=== PATIENT | female | born 1985 | race African-American/Black ===

== ENCOUNTER 2018-02-21 11:00 | Emergency (ER) | payer SELFPAY ==
--- NOTE | 2018-02-21 12:53 | ER Document Report ---
ED Medical Screen (RME) - General Chief Complaint: Vaginal Bleeding Stated Complaint: NEED IUD CHECKED/REMOVED Time Seen by Provider: 02/21/18 12:46 Notes: RAPID MEDICAL EVALUATION DISCLOSURE I have seen this patient as part of a Rapid Medical Evaluation and, if applicable, placed any initially appropriate orders. The patient will be seen and fully evaluated, including a full history and physical exam, by a provider (in Main ED or Fast Track) when a room becomes available. 33-year-old female sent here from the urgent care facility for vaginal bleeding and fatigue ongoing for the past few weeks. Over the past few days she has had some vaginal blood clots. The urgent care facility sent her here to check her hemoglobin. She does not know if her IUD is in the correct position or if it has become displaced because she can no longer feel the IUD strings. She denies abdominal pain. EXAM CTAB RRR No abdominal TTP TRAVEL OUTSIDE OF THE [place] IN LAST 30 DAYS: No - Related Data Allergies/Adverse Reactions: No Known Allergies Allergy (Verified 02/21/18 11:12) Past Medical History - Social History Chew tobacco use (# tins/day): No Frequency of alcohol use: None Drug Abuse: None Renal/ Medical History: Denies: Hx Peritoneal Dialysis Physical Exam - Vital signs Vitals: Temp Pulse Resp BP Pulse Ox 98.0 F 74 15 111/59 L 98 02/21/18 11:15 02/21/18 11:15 02/21/18 11:15 02/21/18 11:15 02/21/18 11:15 Course - Vital Signs Vital signs: Temp Pulse Resp BP Pulse Ox 98.0 F 74 15 111/59 L 98 02/21/18 11:15 02/21/18 11:15 02/21/18 11:15 02/21/18 11:15 02/21/18 11:15 Doctor's Discharge - Discharge Referrals: DORIS TODD MD [Primary Care Provider] - Follow up as needed
[2018-02-21 13:54] LABS: ABSOLUTE EOSINOPHILS # (AUTO) 0.2 10^3/uL (0.0-0.6); ABSOLUTE LYMPHOCYTES (AUTO) 2.6 10^3/uL (0.5-4.7); ABSOLUTE MONOCYTES (AUTO) 0.6 10^3/uL (0.1-1.4); ABSOLUTE NEUT (AUTO) 5.4 10^3/uL (1.7-8.2); BASOPHILS % (AUTO) 0.2 % (0-2); EOSINOPHILS % (AUTO) 2.3 % (0-6); HEMATOCRIT 23.5 % (36.0-47.0); LYMPHOCYTES % (AUTO) 29.5 % (13-45); MEAN CORPUSCULAR HEMOGLOBIN 27.5 pg (27.0-33.4); MEAN CORPUSCULAR HGB CONC 33.2 g/dL (32.0-36.0); MEAN CORPUSCULAR VOLUME 83 fl (80-97); PLATELET COUNT 368 10^3/uL (150-450); RED BLOOD COUNT 2.84 10^6/uL (3.72-5.28); RED CELL DISTRIBUTION WIDTH 15.5 % (11.5-14.0); TOTAL CELLS COUNTED % (AUTO) 100 %; WHITE BLOOD COUNT 8.9 10^3/uL (4.0-10.5)
[2018-02-21 13:56] LABS: APPEARANCE,URINE SLIGHTLY-CLOUDY; BILIRUBIN,URINE NEGATIVE (NEGATIVE); COLOR,URINE YELLOW; GLUCOSE, URINE NEGATIVE (NEGATIVE); KETONES,URINE NEGATIVE (NEGATIVE); LEUKOCYTE ESTERASE,URINE MODERATE (NEGATIVE); NITRITE,URINE NEGATIVE (NEGATIVE); PROTEIN,URINE NEGATIVE (NEGATIVE); URIC ACID CRYSTALS,URINE FEW /HPF; URINE SPECIFIC GRAVITY 1.014; UROBILINOGEN,URINE NEGATIVE mg/dL (<2.0)
[2018-02-21 14:12] LABS: ANION GAP 8 (5-19); BLOOD UREA NITROGEN 6 mg/dL (7-20); CALCIUM 9.4 mg/dL (8.4-10.2); CARBON DIOXIDE 24 mmol/L (22-30); CHLORIDE 109 mmol/L (98-107); GLUCOSE 95 mg/dL (75-110); HEMOGLOBIN 7.8 g/dL (12.0-15.5); POTASSIUM 3.9 mmol/L (3.6-5.0); SODIUM 140.9 mmol/L (137-145)
--- NOTE | 2018-02-21 15:01 | RADIOLOGY REPORT (SQ) ---
EXAM DESCRIPTION: U/S NON OB PEL TV W/DOPPLER COMPLETED DATE/TIME: 02/21/2018 2:47 pm REASON FOR STUDY: vag bleeding; eval IUD position LMP 01/19/2018 COMPARISON: None. TECHNIQUE: Dynamic and static grayscale images acquired of the pelvis via transvaginal approach and recorded on PACS. Additional selected color Doppler and spectral images recorded. LIMITATIONS: None. FINDINGS: UTERUS: 4 fibroids are identified. The largest measures 5 cm in largest diameter and is p edunculated. ENDOMETRIAL STRIPE: IUD is not identified. CERVIX: 5.4 cm. There may be some clot within the endocervical canal. RIGHT OVARY AND DOPPLER: Normal size. No worrisome masses. Normal arterial vascular flow without evid ence for torsion. LEFT OVARY AND DOPPLER: Normal size. No worrisome masses. Normal arterial vascular flow without evide nce for torsion. FREE FLUID: None noted. OTHER: No other significant finding. MEASUREMENTS: UTERUS: 9.1 x 5.7 x 4.3 cm. ENDOMETRIAL STRIPE: 9 mm. RIGHT OVARY: 2.4 x 2.1 x 1.7 cm. LEFT OVARY: 1.9 x 1.8 x 1.6 cm. IMPRESSION: 1. Therefore identifiable uterine fibroids ; the largest of the 3 smaller fibroids carlos ures 2.6 cm in largest diameter. The largest fibroid appears to be pedunculated and measures 5 cm in largest diameter. 2. IUD is not identified within the endometrial canal. TECHNICAL DOCUMENTATION: JOB ID: [id number] [employer]- All Rights Reserved Rev Reading location - IP/workstation name: [email or web address]
[2018-02-21] MEDS ORDERED: DIPHENHYDRAMINE HCL 25 MG CAPSULE PO PRN (16:00)
[2018-02-21] MEDS ORDERED: NORMAL SALINE 250 ML IV PRN ×2 (16:00)
[2018-02-21] MEDS ORDERED: ACETAMINOPHEN 325 MG TABLET PO PRN (16:00)
--- NOTE | 2018-02-21 16:08 | ER Document Report ---
ED General - General Chief Complaint: Vaginal Bleeding Stated Complaint: NEED IUD CHECKED/REMOVED Time Seen by Provider: 02/21/18 12:46 Mode of Arrival: Ambulatory Information source: Patient, [facility] Records Notes: 33-year-old female with no reported past medical history presents with complaint of 1 month of vaginal bleeding. Patient states that she does have a history of heavy menstrual bleeding but it lasted this long. She states initially she was passing small clots but today she passed a large clot which soaked through her pants just prior to arrival. Patient has mild abdominal cramping. Patient has been twice and has 1 live child and has had one . Patient does describe some dizziness and nausea a few days ago. TRAVEL OUTSIDE OF THE [place] IN LAST 30 DAYS: No - HPI Onset: Other Onset/Duration: Gradual, Persistent, Worse Quality of pain: Cramping Severity: Mild Associated symptoms: Nausea, Other - Dizziness. denies: Shortness of breath Exacerbated by: Denies Relieved by: Denies Similar symptoms previously: No Recently seen / treated by doctor: No - Related Data Allergies/Adverse Reactions: No Known Allergies Allergy (Verified 02/21/18 11:12) Past Medical History - General Information source: Patient, [facility] Records - Social History Smoking Status: Never Smoker Chew tobacco use (# tins/day): No Frequency of alcohol use: None Drug Abuse: Marijuana Lives with: Family Family History: Reviewed & Not Pertinent Patient has suicidal ideation: No Patient has homicidal ideation: No - Medical History Medical History: Negative Renal/ Medical History: Denies: Hx Peritoneal Dialysis Review of Systems - Review of Systems Notes: REVIEW OF SYSTEMS: CONSTITUTIONAL : Denies fever, chills, or sweats. Denies recent illness. Denies weight loss, recent hospitalizations. EENT: Denies visual changes, eye pain. Denies sore throat, oral lesions, difficulty swallowing. CARDIOVASCULAR: Denies chest pain. Denies palpitations. Denies lower extremity edema. RESPIRATORY: Denies cough. Denies shortness of breath, wheezing. GASTROINTESTINAL: Denies abdominal pain or distention. Denies nausea, vomiting, or diarrhea. Denies blood in vomitus, stools, or per rectum. Denies black, tarry stools. Denies constipation. GENITOURINARY: Denies difficulty urinating, painful urination, frequency, blood in urine, or vaginal discharge. MUSCULOSKELETAL: Denies back or neck pain or stiffness. Denies joint pain or swelling. SKIN: Denies rash, lesions or sores. HEMATOLOGIC : Denies easy bruising or bleeding. LYMPHATIC: Denies swollen glands. NEUROLOGICAL: Denies confusion or altered mental status. Denies loss of consciousness. Denies headache. Denies weakness or paralysis. Denies problems difficulty with ambulation, slurred speech. Denies sensory loss, numbness, or tingling. Denies seizures. PSYCHIATRIC: Denies anxiety or stress. Denies depression, suicidal ideation, or homicidal ideation. Denies visual or auditory hallucinations. Physical Exam - Vital signs Vitals: Temp Pulse Resp BP Pulse Ox 98.0 F 74 15 111/59 L 98 02/21/18 11:15 02/21/18 11:15 02/21/18 11:15 02/21/18 11:15 02/21/18 11:15 - Notes Notes: PHYSICAL EXAMINATION: GENERAL: Well-appearing, well-nourished and in no acute distress. HEAD: Atraumatic, normocephalic. EYES: Pupils equal round and reactive to light, extraocular movements intact, conjunctiva are normal. ENT: Nares patent, oropharynx clear without exudates. Moist mucous membranes. NECK: Normal range of motion, supple without lymphadenopathy LUNGS: Breath sounds clear to auscultation bilaterally and equal. No wheezes rales or rhonchi. HEART: Regular rate and rhythm without murmurs ABDOMEN: Soft, nontender, nondistended abdomen. No guarding, no rebound. No masses appreciated. Female : Pelvic exam; External genitalia unremarkable. Speculum exam with bloody discharge. Vaginal wall unremarkable. Os closed. IUD not visualized no cervical motion tenderness. No adnexal tenderness or masses appreciated. Swabs obtained for gonorrhea, chlamydia and wet prep. Musculoskeletal: Normal range of motion, no pitting or edema. No cyanosis. NEUROLOGICAL: Cranial nerves grossly intact. Normal speech, normal gait. Normal sensory, motor exams PSYCH: Normal mood, normal affect. SKIN: Warm, Dry, normal turgor, no rashes or lesions noted. Course - Re-evaluation Re-evalutation: 02/21/18 16:06 Temp Pulse Resp BP Pulse Ox 98.0 F 74 15 111/59 L 98 02/21/18 11:15 02/21/18 11:15 02/21/18 11:15 02/21/18 11:15 02/21/18 11:15 Transvaginal US 02/21/18 12:51 IMPRESSION: 1. Therefore identifiable uterine fibroids ; the largest of the 3 smaller fibroids measures 2.6 cm in largest diameter. The largest fibroid appears to be pedunculated and measures 5 cm in largest diameter. 2. IUD is not identified within the endometrial canal. Laboratory 02/21/18 02/21/18 02/21/18 13:21 13:21 13:21 WBC 8.9 RBC 2.84 L Hgb 7.8 L Hct 23.5 L MCV 83 MCH 27.5 MCHC 33.2 RDW 15.5 H Plt Count 368 Seg Neutrophils % 61.0 Lymphocytes % 29.5 Monocytes % 7.0 Eosinophils % 2.3 Basophils % 0.2 Absolute Neutrophils 5.4 Absolute Lymphocytes 2.6 Absolute Monocytes 0.6 Absolute Eosinophils 0.2 Absolute Basophils 0.0 Sodium 140.9 Potassium 3.9 Chloride 109 H Carbon Dioxide 24 Anion Gap 8 BUN 6 L Creatinine 0.66 Est GFR ( Amer) > 60 Est GFR (Non-Af Amer) > 60 Glucose 95 Calcium 9.4 Urine Color YELLOW Urine Appearance SLIGHTLY-CLOUDY Urine pH 6.0 Ur Specific [place] 1.014 Urine Protein NEGATIVE Urine Glucose (UA) NEGATIVE Urine Ketones NEGATIVE Urine Blood LARGE H Urine Nitrite NEGATIVE Urine Bilirubin NEGATIVE Urine Urobilinogen NEGATIVE Ur Leukocyte Esterase MODERATE H Urine WBC (Auto) 29 Urine RBC (Auto) >182 Squamous Epi Cells Auto 1 Uric Acid Cryst (Auto) FEW Urine Mucus (Auto) OCC Urine Ascorbic Acid NEGATIVE Transvaginal US 02/21/18 12:51 IMPRESSION: 1. Therefore identifiable uterine fibroids ; the largest of the 3 smaller fibroids measures 2.6 cm in largest diameter. The largest fibroid appe ars to be pedunculated and measures 5 cm in largest diameter. 2. IUD is not identified within the endometrial canal. Temp Pulse Resp BP Pulse Ox 98.0 F 74 15 111/59 L 98 02/21/18 11:15 02/21/18 11:15 02/21/18 11:15 02/21/18 11:15 02/21/18 11:15 33-year-old female presents with complaint of 1 month of vaginal bleeding that worsened today where she began passing large clots. Patient reports associated nausea, dizziness last week. She states she came in today because she had a significant increase of bleeding and large clots. Vital signs stable upon arrival. Patient does not appear toxic or dehydrated. She is in no acute distress. Previous medical records and nursing notes reviewed. Vital signs within normal limits. Patient is afebrile, normotensive and not tachycardic or hypoxic. Transvaginal ultrasound was obtained and showed multiple uterine fibro ids. IUD not identified. Hemoglobin is 7.8. Pelvic exam significant for vaginal bleeding but I did not see the IUD during her pelvic exam. Patient agreeable to blood transfusion. Urinalysis consistent with urinary tract infection. 02/21/18 16:18 Nurse informed me that patient is upset and is stating that she has been here all day and nothing has been done. We had is a very friendly and normal interaction initially we were laughing and I explained everything to the patient. I walked back into the room and the patient was very hostile stating that I had an attitude. I explained to her that because she is going to continue to believe that I thought transfusing blood at a hemoglobin of 7.8 was appropriate. I also told her that she needs to follow-up with DIELECTRIC MACHINE OPERATOR regarding her fibroids. Patient states over and over I have to pay for this out of pocket and I want to make sure that it is necessary. I explained to the patient that she does not have to stay, does not have to have a blood transfusion. 02/21/18 18:12 Patient reevaluated. She is receiving her blood products. She was told that she has a urinary tract infection and bacterial vaginosis. Patient will be discharged home with Rigo Leyva. Recommendations to follow-up with DIELECTRIC MACHINE OPERATOR were given. 02/22/18 00:06 Patient requesting discharge prior to her second unit of PRBCs. - Vital Signs Vital signs: Temp Pulse Resp BP Pulse Ox 98.1 F 89 20 110/76 100 02/21/18 21:00 02/21/18 20:58 02/21/18 21:00 02/21/18 21:00 02/21/18 21:00 - Laboratory Result Diagrams: 02/21/18 13:21 02/21/18 13:21 Laboratory results interpreted by me: 02/21/18 02/21/1819 13:21 13:21 13:21 RBC 2.84 L Hgb 7.8 L Hct 23.5 L RDW 15.5 H Chloride 109 H BUN 6 L Urine Blood LARGE H Ur Leukocyte Esterase MODERATE H Crossmatch 02/21/18 16:27 RBC Hgb Hct RDW Chloride BUN Urine Blood Ur Leukocyte Esterase Crossmatch See Detail - Diagnostic Test Radiology reviewed: Image reviewed, Reports reviewed Discharge - Discharge Clinical Impression: Episode of heavy vaginal bleeding, Bacterial vaginosis Anemia Qualifiers: Anemia type: unspecified type Qualified Code(s): D64.9 - Anemia, unspecified Urinary tract infection Qualifiers: Urinary tract infection type: site unspecified Hematuria presence: with hematuria Qualified Code(s): N39.0 - Urinary tract infection, site not specified Condition: Good Disposition: HOME, SELF-CARE Instructions: Anemia ([facility]), Cephalexin ([facility]), Urinary Tract Infection ([facility]), Vaginal Bleeding ([facility]) Additional Instructions: You are being treated for bacterial vaginosis, an overgrowth of normal bacteria in the vagina. You are being sent home on an antibiotic called metronidazole. Take exactly as directed. Never drink alcohol while taking this antibiotic. Please return if you develop abdominal pain, fever greater than 101F, some vomiting, or any other symptoms that are concerning to you. Your ultrasound today showed multiple fibroids which can be the cause of your heavy vaginal bleeding. You will need to follow-up with DIELECTRIC MACHINE OPERATOR. You have been given a medication that should help stop the bleeding. Follow up with your [id number] hours for further care or return to the ED IMMEDIATELY if symptoms worsen or you have any concerns. If you cannot afford to follow up with your primary care physician a list of low cost clinics have been provided at the end of your discharge papers as well. Most prescribed medications have multiple side effects. The safest thing to do is when filling your prescription speak to your pharmacist regarding possible interactions with your normal home medications and over the counter medications such as Ibuprofen, Tylenol, Benadryl. If you experience any symptoms that cause you discomfort or concern you should discontinue the medication immediately and return to the emergency room or call your primary care physician. Prescriptions: Cephalexin Monohydrate [Keflex 500 mg Capsule] 500 mg PO BID 5 Days #10 capsule Metronidazole [Flagyl 500 mg Tablet] 500 mg PO BID #14 tablet Ondansetron [Zofran Odt 4 mg Tablet] 1 tab PO Q4H PRN #15 tab.rapdis PRN Reason: For Nausea/Vomiting Tranexamic Acid 1,300 mg PO TID #30 tablet Referrals: DORIS TODD MD [ACTIVE STAFF] - Follow up as needed YOGESH HINDS MD [ACTIVE STAFF] - Follow up in 1 week
[2018-02-21 17:18] LABS: BACTERIA (WET MOUNT) 3+ BACTERIA SEEN; RBCS (WET MOUNT) 4+ RBCS SEEN; T.VAGINALIS (WET MOUNT) NO TRICHOMONAS SEEN; WBCS (WET MOUNT) 2+ WBCS SEEN; YEAST (WET MOUNT) NO YEAST SEEN
[2018-02-21] MEDS ORDERED: CEPHALEXIN 500 MG CAPSULE PO ONE (17:26)
[2018-02-21] MEDS ORDERED: METRONIDAZOLE 500 MG TABLET PO ONE (17:26)
[2018-02-21] MEDS ORDERED: ONDANSETRON 4 MG TAB.RAPDIS PO ONE (17:26)
[2018-02-21 18:37] LABS: CHLAM PCR NOT DETECTED (NOT DETECT); GON PCR NOT DETECTED (NOT DETECT)
[2018-02-21 21:20] VITALS: BP 110/76
== END 2018-02-21 21:20 | disposition home or self-care (01) ==
LOC: ER 11:00
DX: N93.8 Other specified abnormal uterine and vaginal bleeding (principal); N76.0 Acute vaginitis; B96.89 Other specified bacterial agents as the cause of diseases classified elsewhere; N39.0 Urinary tract infection, site not specified; D64.9 Anemia, unspecified; Z97.5 Presence of (intrauterine) contraceptive device
CPT/HCPCS: 99284; 86900; 86901; 36415; 87210; 36430; 86850; 85025; 81025; 80048; 81001; 86920; 87491; 87591; 76830; 93976; P9016; S0119

== ENCOUNTER 2018-04-26 09:04 | Outpatient (CLI) | payer SELFPAY ==
[2018-04-26] MEDS ORDERED: NORMAL SALINE 250 ML IV PRN (09:30)
[2018-04-26] MEDS ORDERED: FERRIC CARBOXYMALTOSE 750 MG in NORMAL SALINE 250 ML IV PRN (09:30)
[2018-04-26 09:49] VITALS: BP 107/61
== END 2018-04-26 10:36 | disposition home or self-care (01) ==
LOC: II 09:04 → 5TH 09:55 → II 10:36
PROVIDERS: ATTEND Internal Medicine
PROC: 3E033GC Introduction of Other Therapeutic Substance into Peripheral Vein, Percutaneous Approach (ICD-10-PCS; principal; 2018-04-26)
DX: D50.0 Iron deficiency anemia secondary to blood loss (chronic) (principal); K90.9 Intestinal malabsorption, unspecified
CPT/HCPCS: 96365; J1439; J7050

== ENCOUNTER 2018-05-03 09:14 | Outpatient (CLI) | payer SELFPAY ==
[~2018-05-03 09:14] MED LIST: FERRIC CARBOXYMALTOSE 750 MG in NORMAL SALINE 250 ML IV PRN; NORMAL SALINE 250 ML IV PRN
[2018-05-03 09:41] VITALS: BP 105/63
== END 2018-05-03 10:30 | disposition home or self-care (01) ==
LOC: II 09:14 → 5TH 09:20 → II 10:30
PROVIDERS: ATTEND Internal Medicine
PROC: 3E033GC Introduction of Other Therapeutic Substance into Peripheral Vein, Percutaneous Approach (ICD-10-PCS; principal; 2018-05-03)
DX: D50.0 Iron deficiency anemia secondary to blood loss (chronic) (principal); K90.9 Intestinal malabsorption, unspecified
CPT/HCPCS: 96365; J7050; J1439

== ENCOUNTER 2018-06-11 13:54 | Observation (INO) | payer SELFPAY ==
[2018-06-11] MEDS ORDERED: NORMAL SALINE 1000 ML 1,000 ML IV ONE (14:13)
--- NOTE | 2018-06-11 14:14 | ER Document Report ---
ED Medical Screen (RME) - General Chief Complaint: Shortness Of Breath Stated Complaint: NAUSEA,SHORT OF BREATH Time Seen by Provider: 06/11/18 14:06 Mode of Arrival: Ambulatory Information source: Patient Notes: Patient presents complaining of vaginal bleeding with clots. Patient states that she is anemic has nausea feels faint and has shortness of breath. Patient states that she has history of fibroid uterus but does not have insurance and has not been able to follow-up. Patient states she has required a blood transfusion as well as an iron transfusion in the past. Patient denies any chest pain. I have greeted and performed a rapid initial assessment of this patient. A comprehensive ED assessment and evaluation of the patient, analysis of test results and completion of the medical decision making process will be conducted by additional ED providers. TRAVEL OUTSIDE OF THE [place] IN LAST 30 DAYS: No - Related Data Allergies/Adverse Reactions: No Known Allergies Allergy (Verified 06/11/18 13:55) Past Medical History Renal/ Medical History: Denies: Hx Peritoneal Dialysis Physical Exam - Vital signs Vitals: Temp Pulse Resp BP Pulse Ox 98.2 F 118 H 18 135/76 H 100 06/11/18 13:59 06/11/18 13:59 06/11/18 13:59 06/11/18 13:59 06/11/18 13:59 - Cardiovascular Rhythm: Tachycardia Heart sounds: S1 appreciated, S2 appreciated Course - Vital Signs Vital signs: Temp Pulse Resp BP Pulse Ox 98.2 F 118 H 18 135/76 H 100 06/11/18 13:59 06/11/18 13:59 06/11/18 13:59 06/11/18 13:59 06/11/18 13:59
[2018-06-11 15:08] LABS: ABSOLUTE EOSINOPHILS # (AUTO) 0.1 10^3/uL (0.0-0.6); ABSOLUTE LYMPHOCYTES (AUTO) 1.8 10^3/uL (0.5-4.7); ABSOLUTE MONOCYTES (AUTO) 0.5 10^3/uL (0.1-1.4); ABSOLUTE NEUT (AUTO) 6.8 10^3/uL (1.7-8.2); BASOPHILS % (AUTO) 0.2 % (0-2); LYMPHOCYTES % (AUTO) 19.4 % (13-45); MEAN CORPUSCULAR HEMOGLOBIN 25.2 pg (27.0-33.4); MEAN CORPUSCULAR HGB CONC 32.6 g/dL (32.0-36.0); MEAN CORPUSCULAR VOLUME 77 fl (80-97); MONOCYTES % (AUTO) 5.7 % (3-13); PLATELET COUNT 443 10^3/uL (150-450); RED BLOOD COUNT 2.07 10^6/uL (3.72-5.28); RED CELL DISTRIBUTION WIDTH 24.8 % (11.5-14.0); SEGMENTED NEUTROPHILS % (AUTO) 73.7 % (42-78); TOTAL CELLS COUNTED % (AUTO) 100 %; WHITE BLOOD COUNT 9.2 10^3/uL (4.0-10.5)
--- NOTE | 2018-06-11 15:09 | RADIOLOGY REPORT (SQ) ---
EXAM DESCRIPTION: CHEST 2 VIEWS COMPLETED DATE/TIME: 06/11/2018 2:57 pm REASON FOR STUDY: sob COMPARISON: None. EXAM PARAMETERS: NUMBER OF VIEWS: two views TECHNIQUE: Digital Frontal and Lateral radiographic views of the chest acquired. RADIATION DOSE: NA LIMITATIONS: none FINDINGS: LUNGS AND PLEURA: No opacities, masses or pneumothorax. No pleural effusion. MEDIASTINUM AND HILAR STRUCTURES: No masses or contour abnormalities. HEART AND VASCULAR STRUCTURES: Heart normal size. No evidence for failure. BONES: No acute findings. HARDWARE: None in the chest. OTHER: No other significant finding. IMPRESSION: No acute abnormality of the lungs. TECHNICAL DOCUMENTATION: JOB ID: [id number] [email or web address]- All Rights Reserved Reading location - IP/workstation name: [email or web address]
[2018-06-11 15:19] LABS: HEMOGLOBIN 5.2 g/dL (12.0-15.5)
[2018-06-11 15:22] LABS: ALANINE AMINOTRANSFERASE 28 U/L (9-52); ALBUMIN 3.7 g/dL (3.5-5.0); ALKALINE PHOSPHATASE 43 U/L (38-126); ANION GAP 7 (5-19); ASPARTATE AMINO TRANSFERASE 19 U/L (14-36); BILIRUBIN,DIRECT 0.2 mg/dL (0.0-0.4); BILIRUBIN,TOTAL 0.2 mg/dL (0.2-1.3); BLOOD UREA NITROGEN 5 mg/dL (7-20); CALCIUM 9.4 mg/dL (8.4-10.2); CARBON DIOXIDE 25 mmol/L (22-30); CHLORIDE 105 mmol/L (98-107); GLUCOSE 105 mg/dL (75-110); POTASSIUM 3.9 mmol/L (3.6-5.0); SODIUM 137.3 mmol/L (137-145); TOTAL PROTEIN 6.5 g/dL (6.3-8.2)
[2018-06-11 15:39] LABS: ANISOCYTOSIS 3+; HYPOCHROMASIA 1+; OVALOCYTES 1+; POIKILOCYTOSIS 1+
[2018-06-11 15:40] LABS: PLATELET COMMENT ADEQUATE; TEAR DROP CELLS SLIGHT
[2018-06-11] MEDS ORDERED: NORMAL SALINE 250 ML IV PRN ×2 (16:23→17:48)
--- NOTE | 2018-06-11 17:02 | EKG REPORT ---
SEVERITY:- NORMAL ECG - SINUS RHYTHM : Confirmed by: Jin Joseph MD 11-Jun-2018 17:02:19
--- NOTE | 2018-06-11 17:42 | ER Document Report ---
ED General - General Chief Complaint: Shortness Of Breath Stated Complaint: NAUSEA,SHORT OF BREATH Time Seen by Provider: 06/11/18 14:06 Mode of Arrival: Ambulatory Notes: 33-year-old female patient emergency department chief complaint of anemia, dizziness and significant vaginal bleeding. Patient has a known history of uterine fibroids. Has not been able to be seen so she says. Having some intermittent cramping. No other major issues at this time. States that every time she goes to stand up she gets really dizzy and feels like she is going to pass out. Had some episodes of vomiting today. TRAVEL OUTSIDE OF THE [place] IN LAST 30 DAYS: No - HPI Onset: Last week Onset/Duration: Gradual, Constant, Worse Severity: Moderate - Related Data Allergies/Adverse Reactions: No Known Allergies Allergy (Verified 06/11/18 13:55) Past Medical History - General Information source: Patient - Social History Smoking Status: Never Smoker Chew tobacco use (# tins/day): No Frequency of alcohol use: Rare Drug Abuse: Marijuana Lives with: Family Family History: Reviewed & Not Pertinent Patient has suicidal ideation: No Patient has homicidal ideation: No Renal/ Medical History: Denies: Hx Peritoneal Dialysis Review of Systems - Review of Systems Notes: Constitutional: denies: Chills, Diaphoresis, Fever, Malaise, +Weakness EENT: denies: Eye discharge, Blurred vision, Tearing, Double vision, Nose congestion, Nose discharge, Throat swelling, Mouth pain Cardiovascular: denies: Palpitations, Heart racing, Orthopnea, Dyspnea, Chest pain Respiratory: denies: Cough, Hurts to breathe, Wheezing, Shortness of breath Gastrointestinal: denies: Abdominal pain, Diarrhea, Black stools, bright red blood in stool. +Nausea, Vomiting, Genitourinary: denies: Burning, Dysuria, Discharge, Frequency, Flank pain, Hematuria.+ Positive vaginal bleeding Musculoskeletal: denies: Joint pain, Joint swelling, Muscle pain, Muscle stiffness, back pain Hematologic/Lymphatic: denies: Anemia, Easy bleeding, Easy bruising, Blood clots Neurological/Psychological: denies: Confusion, Dementia, Depression, Loss of consciousness Skin: No lesions, no masses, no skin breakdown, no abscesses Physical Exam - Vital signs Vitals: Temp Pulse Resp BP Pulse Ox 98.2 F 118 H 18 135/76 H 100 06/11/18 13:59 06/11/18 13:59 06/11/18 13:59 06/11/18 13:59 06/11/18 13:59 Interpretation: Normal - General General appearance: Appears well, Alert - HEENT Head: Normocephalic, Atraumatic Eyes: Normal Pupils: PERRL - Respiratory Respiratory status: No respiratory distress Chest status: Nontender Breath sounds: Normal Chest palpation: Normal - Cardiovascular Rhythm: Regular Heart sounds: Normal auscultation Murmur: No - Abdominal Inspection: Normal Distension: No distension Bowel sounds: Normal Tenderness: Nontender Organomegaly: No organomegaly - Back Back: Normal, Nontender - Extremities General upper extremity: Normal inspection, Nontender, Normal color, Normal ROM, Normal temperature General lower extremity: Normal inspection, Nontender, Normal color, Normal ROM, Normal temperature, Normal weight bearing. No: Kristopher's sign - Neurological Neuro grossly intact: Yes Cognition: Normal Orientation: AAOx4 [place] Coma Scale Eye Opening: Spontaneous Pallavi Coma Scale Verbal: Oriented Pallavi Coma Scale Motor: Obeys Commands [place] Coma Scale Total: 15 Speech: Normal Motor strength normal: LUE, RUE, LLE, RLE Sensory: Normal - Psychological Associated symptoms: Normal affect, Normal mood - Skin Skin Temperature: Warm Skin Moisture: Dry Skin Color: Pale Course - Re-evaluation Re-evalutation: 06/11/18 18:28 Patient has significant anemia. Requires blood transfusion at this time. History of uterine fibroids and supposedly has not been seen by PAINTER FOREMAN other than in the ER. At this time I think patient needs to be admitted. I have consulted with PAINTER FOREMAN, Dr. Manjarrez, she has agreed to admit at this time. - Vital Signs Vital signs: Temp Pulse Resp BP Pulse Ox 98.6 F 94 12 98/63 L 100 06/11/18 17:35 06/11/18 17:40 06/11/18 17:40 06/11/18 17:35 06/11/18 17:40 - Laboratory Result Diagrams: 06/11/18 14:37 06/11/18 14:37 Laboratory results interpreted by me: 06/11/18 06/11/18 06/11/18 14:37 14:37 14:44 RBC 2.07 L Hgb 5.2 L Hct 16.0 L MCV 77 L MCH 25.2 L RDW 24.8 H BUN 5 L Crossmatch See Detail Critical Care Note - Critical Care Note Total time excluding time spent on procedures (mins): 45 Comments: Symptomatic anemia, blood loss, consultation with specialist Discharge - Discharge Clinical Impression: Symptomatic anemia Uterine fibroid Qualifiers: Uterine leiomyoma location: unspecified location Qualified Code(s): D25.9 - Leiomyoma of uterus, unspecified Disposition: ADMITTED OBSERVATION Admitting Provider: [facility] - DR. Manjarrez Unit Admitted: Medical Floor
[2018-06-11] MEDS ORDERED: TRANEXAMIC ACID INJ/PF 1,000 MG/10 ML SDV IV ONE (17:46)
[2018-06-11] MEDS ORDERED: ESTROGENS,CONJUGATED 25 MG VIAL IV ONE (17:47)
[2018-06-11] MEDS ORDERED: ONDANSETRON HCL INJ/PF 4 MG/2 ML SDV IV ONE (18:30)
[2018-06-11] MEDS ORDERED: ONDANSETRON HCL INJ/PF 4 MG/2 ML SDV ONE (18:31)
[2018-06-11] MEDS ORDERED: ESTROGENS,CONJUGATED 25 MG VIAL ONE (18:45)
--- NOTE | 2018-06-11 21:16 | RADIOLOGY REPORT (SQ) ---
EXAM DESCRIPTION: US TRANSVAGINAL COMPLETED DATE/TME: 06/11/2018 17:44 CLINICAL HISTORY: 33 years, Female, vaginal bleeding COMPARISON: None. TECHNIQUE: Sonographic evaluation of the pelvis was performed. LIMITATIONS: None. FINDINGS: Uterus measures 8.7 x 3.9 x 5.5 cm in size. It contains multiple fibroids, the largest of which measures 4.8 x 4.0 x 4.9 cm in size located about the rightward aspect of the uterine fundus. Endometrial stripe thickness measures 3 mm. In addition, a fibroid is located about the lower uterine segment near the cervix measuring 4.1 x 3.2 x 3.2 cm in size. Right ovary measures 3.3 x 1.9 x 1.4 cm in size. It demonstrates normal echogenicity and low resistance arterial waveforms as well as venous flow. Left ovary measures 2.5 x 1.6 x 2.5 cm in size and demonstrates normal echogenicity and normal low resistance arterial waveforms/venous flow. IMPRESSION: No acute sonographic abnormality. Fibroid uterus. copyright 2010 [email or web address]- All Rights Reserved
[2018-06-11] MEDS ORDERED: ONDANSETRON HCL INJ/PF 4 MG/2 ML SDV IV PRN (23:10)
[2018-06-12] MEDS ORDERED: DEXTROSE 40% GEL 15 GM TUBE PO PRN ×2 (03:49)
[2018-06-12] MEDS ORDERED: DEXTROSE 50%-WATER 25 GM/50 ML DISP.SYRIN IV PRN ×2 (03:49)
[2018-06-12] MEDS ORDERED: GLUCAGON,HUMAN RECOMB 1 MG INJ SUBCUT PRN (03:49)
[2018-06-12] MEDS: RINGERS SOLUTION,LACTATED 1,000 ML IV PRN ×2 (03:50→22:59)
[2018-06-12 06:03] LABS: CHLAM PCR NOT DETECTED (NOT DETECT); GON PCR NOT DETECTED (NOT DETECT)
--- NOTE | 2018-06-12 07:50 | PDOC H&P ---
History of Present Illness Admission Date/PCP: 06/11/18 18:01-23hr observation Patient complains of: Nausea and vomting. Heavy vaginal bleeding History of Present Illness: LUZ MARIA PARRISH is a 33yo P1 presented to the ED with complaints of nausea and vomiting. Patient also with complaints of light headedness and dizziness and feeling as if she is going to pass out. Patient with significant history of abnormal uterine bleeding second to uterine myomas. On laboratory evaluation patient was found to have a hemoglobin of 5. On further questioning, patient admits to SOB and chest pain with activity. Patient states she has been bleeding since January. Patient notes that she has 4-5 days a month when she is not bleeding. Patient states for the last 3 days she has been flooding a pad every hour. Patient received blood in February when patient was symptomatic. Patient was seen by Dr. Galarza in April and was supposed to have a myomectomy but did not follow up. 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 Past Medical History LMP: current Menses: heavy and long Last Pap Smear: 09/24/17 - states was told abnormal but does not know when to follow up Gynecological Infection: Yes - history of chlamydia and gonorrhea 2005 Gynecological History Note: History of mirena and paragard; appears IUD was expulsed Past Surgical History Past Surgical History: Reports: Other - D&C for VIP Social History Lives with: Family Smoking Status: Former Smoker Last Time Smoked: 4 yearsv ago Frequency of Alcohol Use: None Hx Recreational Drug Use: Yes Drugs: Marijuana Hx Prescription Drug Abuse: No - Advance Directive Resuscitation Status: Full Code Family History Family History: Reviewed & Not Pertinent Parental Family History Reviewed: No - not contributory Children Family History Reviewed: NA Sibling(s) Family History Reviewed.: NA Medication/Allergy Home Medications: Cephalexin Monohydrate [Keflex 500 mg Capsule] 500 mg PO BID 5 Days #10 capsule 02/21/18 Metronidazole [Flagyl 500 mg Tablet] 500 mg PO BID #14 tablet 02/21/18 Ondansetron [Zofran Odt 4 mg Tablet] 1 tab PO Q4H PRN #15 tab.rapdis 02/21/18 Tranexamic Acid 1,300 mg PO TID #30 tablet 02/21/18 Allergies/Adverse Reactions: No Known Allergies Allergy (Verified 06/11/18 13:55) Review of Systems Constitutional: PRESENT: fatigue, headache(s), weakness Cardiovascular: PRESENT: chest pain, dyspnea on exertion, palpitations Respiratory: PRESENT: as per HPI Gastrointestinal: PRESENT: nausea Genitourinary: PRESENT: as per HPI Neurological: PRESENT: convulsions, syncope, weakness Physical Exam - Physical Exam Vital Signs: Temp Pulse Resp BP Pulse Ox 98.2 F 84 18 102/56 L 99 06/12/18 02:39 06/12/18 02:39 06/12/18 02:39 06/12/18 02:39 06/12/18 02:39 Intake & Output 06/10/18 06/11/18 06/12/18 06:59 06:59 06:59 Intake Total 2150 Balance 2150 Weight 62.5 kg General appearance: PRESENT: no acute distress, cooperative, thin, well- developed Head exam: PRESENT: atraumatic, normocephalic Respiratory exam: PRESENT: clear to auscultation helena, symmetrical Cardiovascular exam: PRESENT: RRR, +S1, +S2 Pulses: PRESENT: normal carotid pulses, normal dorsalis pedis pul Vascular exam: PRESENT: normal capillary refill - since transfusion of 3 units of blood GI/Abdominal exam: PRESENT: normal bowel sounds, soft Rectal exam: PRESENT: deferred Gentrourinary exam: PRESENT: other - vaginal bleeding Musculoskeletal exam: PRESENT: ambulatory, full ROM Neurological exam: PRESENT: alert, awake, oriented to person, oriented to place, normal gait Psychiatric exam: PRESENT: appropriate affect, normal mood, other - joking with with staff, upbeat Skin exam: PRESENT: intact - Gynecological Exam Labia: normal Urethra: normal Introitus: normal Perineum: normal Vagina: normal Cervix: masses - 5cm slightly irregular prolapsed fibroid Cervix: masses - 5cm irregular myoma, stalk palpated up in cervix to be about 1cm diameter stalk Uterus: masses Adhexa: normal - feels as if mass to the left of the uterine fundus Result Laboratory Results: 06/11/18 14:37 06/11/18 14:37 06/11/18 06/11/18 06/11/18 14:37 14:37 14:37 WBC 9.2 RBC 2.07 L Hgb 5.2 L Hct 16.0 L MCV 77 L MCH 25.2 L MCHC 32.6 RDW 24.8 H Plt Count 443 Seg Neutrophils % 73.7 Lymphocytes % 19.4 Monocytes % 5.7 Eosinophils % 1.0 Basophils % 0.2 Absolute Neutrophils 6.8 Absolute Lymphocytes 1.8 Absolute Monocytes 0.5 Absolute Eosinophils 0.1 Absolute Basophils 0.0 Sodium 137.3 Potassium 3.9 Chloride 105 Carbon Dioxide 25 Anion Gap 7 BUN 5 L Creatinine 0.75 Est GFR ( Amer) > 60 Est GFR (Non-Af Amer) > 60 Glucose 105 Calcium 9.4 Total Bilirubin 0.2 AST 19 ALT 28 Alkaline Phosphatase 43 Total Protein 6.5 Albumin 3.7 Serum HCG, Qual NEGATIVE Blood Type Antibody Screen 06/11/18 14:44 WBC RBC Hgb Hct MCV MCH MCHC RDW Plt Count Seg Neutrophils % Lymphocytes % Monocytes % Eosinophils % Basophils % Absolute Neutrophils Absolute Lymphocytes Absolute Monocytes Absolute Eosinophils Absolute Basophils Sodium Potassium Chloride Carbon Dioxide Anion Gap BUN Creatinine Est GFR ( Amer) Est GFR (Non-Af Amer) Glucose Calcium Total Bilirubin AST ALT Alkaline Phosphatase Total Protein Albumin Serum HCG, Qual Blood Type O POSITIVE Antibody Screen NEGATIVE 06/11/18 14:37 Troponin I < 0.012 Impressions: Chest X-Ray 06/11/18 14:11 IMPRESSION: No acute abnormality of the lungs. Transvaginal US 06/11/18 17:44 IMPRESSION: No acute sonographic abnormality. Fibroid uterus. copyright 2010 [employer]- All Rights Reserved Assessment & Plan - Diagnosis (1) Pedunculated leiomyoma of uterus Is this a current diagnosis for this admission?: Yes (2) Symptomatic anemia Is this a current diagnosis for this admission?: Yes (3) Uterine fibroid Qualifiers: Uterine leiomyoma location: intramural and submucous Qualified Code(s): D25.1 - Intramural leiomyoma of uterus; D25.0 - Submucous leiomyoma of uterus Is this a current diagnosis for this admission?: Yes - Plan Summary Plan Summary: Patient post 3 units of blood Discussed with patient that she has a very treatable prolapsed fibroid of the uterus that can be removed with minor procedure under MAC as patient is not interested in removal of uterus Will discuss with Dr. Marcial Pt is NPO for now
--- NOTE | 2018-06-12 08:53 | PDOC PROGRESS REPORT ---
Subjective Progress Note for:: 06/12/18 Subjective:: Doing well today. Bleeding is stopped. Reason For Visit: SYMPTOMATIC ANEMIA,UTERINE FIBROID Physical Exam - Physical Exam Vital Signs: Temp Pulse Resp BP Pulse Ox 98.6 F 97 18 107/65 100 06/12/18 08:00 06/12/18 08:00 06/12/18 08:00 06/12/18 08:00 06/12/18 08:00 Intake & Output 06/11/18 06/12/18 06/13/18 06:59 06:59 06:59 Intake Total 2150 Balance 2150 Weight 64.2 kg General appearance: PRESENT: no acute distress, well-developed, well-nourished - Gynecological Exam Labia: normal Urethra: normal Introitus: normal Perineum: normal Vagina: normal Cervix: masses - 5cm slightly irregular prolapsed fibroid Cervix: masses - 5cm irregular myoma, stalk palpated up in cervix to be about 1cm diameter stalk Uterus: masses Adhexa: normal - feels as if mass to the left of the uterine fundus Result Laboratory Results: 06/11/18 14:37 06/11/18 06/11/18 06/11/18 14:37 14:37 14:37 WBC 9.2 RBC 2.07 L Hgb 5.2 L Hct 16.0 L MCV 77 L MCH 25.2 L MCHC 32.6 RDW 24.8 H Plt Count 443 Seg Neutrophils % 73.7 Lymphocytes % 19.4 Monocytes % 5.7 Eosinophils % 1.0 Basophils % 0.2 Absolute Neutrophils 6.8 Absolute Lymphocytes 1.8 Absolute Monocytes 0.5 Absolute Eosinophils 0.1 Absolute Basophils 0.0 Sodium 137.3 Potassium 3.9 Chloride 105 Carbon Dioxide 25 Anion Gap 7 BUN 5 L Creatinine 0.75 Est GFR ( Amer) > 60 Est GFR (Non-Af Amer) > 60 Glucose 105 Calcium 9.4 Total Bilirubin 0.2 AST 19 ALT 28 Alkaline Phosphatase 43 Total Protein 6.5 Albumin 3.7 Serum HCG, Qual NEGATIVE Blood Type Antibody Screen 06/11/18 14:44 WBC RBC Hgb Hct MCV MCH MCHC RDW Plt Count Seg Neutrophils % Lymphocytes % Monocytes % Eosinophils % Basophils % Absolute Neutrophils Absolute Lymphocytes Absolute Monocytes Absolute Eosinophils Absolute Basophils Sodium Potassium Chloride Carbon Dioxide Anion Gap BUN Creatinine Est GFR ( Amer) Est GFR (Non-Af Amer) Glucose Calcium Total Bilirubin AST ALT Alkaline Phosphatase Total Protein Albumin Serum HCG, Qual Blood Type O POSITIVE Antibody Screen NEGATIVE 06/11/18 14:37 Troponin I < 0.012 Impressions: Chest X-Ray 06/11/18 14:11 IMPRESSION: No acute abnormality of the lungs. Transvaginal US 06/11/18 17:44 IMPRESSION: No acute sonographic abnormality. Fibroid uterus. copyright 2011 [employer]- All Rights Reserved Assessment & Plan - Diagnosis (1) Pedunculated leiomyoma of uterus Is this a current diagnosis for this admission?: Yes (2) Symptomatic anemia Is this a current diagnosis for this admission?: Yes (3) Uterine fibroid Qualifiers: Uterine leiomyoma location: intramural and submucous Qualified Code(s): D25.1 - Intramural leiomyoma of uterus; D25.0 - Submucous leiomyoma of uterus Is this a current diagnosis for this admission?: Yes - Plan Summary Plan Summary: We will address the fibroid as an elective case tomorrow as an add on surgery.
[2018-06-12 08:55] LABS: ABSOLUTE LYMPHOCYTES (AUTO) 1.3 10^3/uL (0.5-4.7); ABSOLUTE MONOCYTES (AUTO) 0.6 10^3/uL (0.1-1.4); ABSOLUTE NEUT (AUTO) 9.7 10^3/uL (1.7-8.2); BASOPHILS % (AUTO) 0.4 % (0-2); EOSINOPHILS % (AUTO) 0.2 % (0-6); HEMATOCRIT 23.5 % (36.0-47.0); LYMPHOCYTES % (AUTO) 11.5 % (13-45); MEAN CORPUSCULAR HEMOGLOBIN 26.3 pg (27.0-33.4); MEAN CORPUSCULAR HGB CONC 33.3 g/dL (32.0-36.0); MEAN CORPUSCULAR VOLUME 79 fl (80-97); MONOCYTES % (AUTO) 5.2 % (3-13); PLATELET COUNT 340 10^3/uL (150-450); RED BLOOD COUNT 2.97 10^6/uL (3.72-5.28); RED CELL DISTRIBUTION WIDTH 17.9 % (11.5-14.0); SEGMENTED NEUTROPHILS % (AUTO) 82.7 % (42-78); TOTAL CELLS COUNTED % (AUTO) 100 %; WHITE BLOOD COUNT 11.7 10^3/uL (4.0-10.5)
[2018-06-12 09:17] LABS: POLYCHROMASIA 1+
[2018-06-12 09:18] LABS: ANISOCYTOSIS 1+; HYPOCHROMASIA SLIGHT; OVALOCYTES 1+; PLATELET COMMENT ADEQUATE; STOMATOCYTES SLIGHT
[2018-06-12 09:24] LABS: HEMOGLOBIN 7.8 g/dL (12.0-15.5)
[2018-06-13] MEDS ORDERED: DEXTROSE 50%-WATER 25 GM/50 ML DISP.SYRIN IV PRN ×2 (02:06)
[2018-06-13] MEDS ORDERED: DEXTROSE 40% GEL 15 GM TUBE PO PRN ×2 (02:06)
[2018-06-13] MEDS ORDERED: GLUCAGON,HUMAN RECOMB 1 MG INJ SUBCUT PRN (02:06)
[2018-06-13 06:06] LABS: ABSOLUTE EOSINOPHILS # (AUTO) 0.4 10^3/uL (0.0-0.6); ABSOLUTE LYMPHOCYTES (AUTO) 2.2 10^3/uL (0.5-4.7); ABSOLUTE MONOCYTES (AUTO) 0.9 10^3/uL (0.1-1.4); ABSOLUTE NEUT (AUTO) 5.1 10^3/uL (1.7-8.2); BASOPHILS % (AUTO) 0.2 % (0-2); EOSINOPHILS % (AUTO) 4.5 % (0-6); HEMATOCRIT 21.6 % (36.0-47.0); LYMPHOCYTES % (AUTO) 25.5 % (13-45); MEAN CORPUSCULAR HEMOGLOBIN 26.2 pg (27.0-33.4); MEAN CORPUSCULAR HGB CONC 33.5 g/dL (32.0-36.0); MEAN CORPUSCULAR VOLUME 78 fl (80-97); MONOCYTES % (AUTO) 10.3 % (3-13); PLATELET COUNT 330 10^3/uL (150-450); RED BLOOD COUNT 2.76 10^6/uL (3.72-5.28); RED CELL DISTRIBUTION WIDTH 18.1 % (11.5-14.0); SEGMENTED NEUTROPHILS % (AUTO) 59.5 % (42-78); TOTAL CELLS COUNTED % (AUTO) 100 %; WHITE BLOOD COUNT 8.7 10^3/uL (4.0-10.5)
[2018-06-13 06:17] LABS: HEMOGLOBIN 7.3 g/dL (12.0-15.5)
[2018-06-13 06:50] LABS: ANISOCYTOSIS 2+; HYPOCHROMASIA 1+; PLATELET COMMENT ADEQUATE; POLYCHROMASIA 1+; SCHISTOCYTES SLIGHT; TARGET CELLS 1+; TEAR DROP CELLS 1+
[2018-06-13] MEDS: RINGERS SOLUTION,LACTATED 1,000 ML IV PRN (07:25)
[2018-06-13] MEDS ORDERED: GLYCOPYRROLATE 1 MG/5 ML SYRINGE ONE (09:59)
[2018-06-13] MEDS ORDERED: LIDOCAINE 2% INJ-PF (20 MG/ML) 2 ML AMPUL ONE (09:59)
[2018-06-13] MEDS ORDERED: DEXAMETHASONE SOD PHOSPHATE INJ 4 MG/1 ML VIAL ONE ×2 (09:59→12:58)
[2018-06-13] MEDS ORDERED: KETOROLAC TROMETHAMINE 60 MG/2 ML SDV ONE (09:59)
[2018-06-13] MEDS ORDERED: METOCLOPRAMIDE HCL INJ/PF 10 MG/2 ML SDV ONE (09:59)
[2018-06-13] MEDS ORDERED: MIDAZOLAM 2 MG/2 ML INJ ONE (12:58)
[2018-06-13] MEDS ORDERED: ONDANSETRON HCL INJ/PF 4 MG/2 ML SDV ONE (12:58)
[2018-06-13] MEDS ORDERED: PROPOFOL INJ 200 MG/20 ML VIAL IV ONE (12:58)
[2018-06-13] MEDS ORDERED: LIDOCAINE 2% INJ-PF (100 MG/5 ML) SYRINGE ONE (12:58)
[2018-06-13] MEDS ORDERED: FENTANYL CITRATE INJ/PF 100 MCG/2 ML AMPUL ONE (12:58)
[2018-06-13] MEDS ORDERED: LIDOCAINE 1%/EPINEPHRINE INJ 20 ML VIAL ONE (13:03)
[2018-06-13] MEDS ORDERED: MORPHINE SULFATE 10 MG/ML INJ IV PRN (13:29)
[2018-06-13] MEDS ORDERED: DIPHENHYDRAMINE HCL 50 MG/ML VIAL IV PRN (13:29)
[2018-06-13] MEDS ORDERED: FENTANYL CITRATE INJ/PF 100 MCG/2 ML AMPUL IV PRN ×3 (13:29)
[2018-06-13] MEDS ORDERED: MEPERIDINE HCL/PF INJ 25 MG/1 ML DISP.SYRIN IV PRN (13:29)
[2018-06-13] MEDS ORDERED: PROMETHAZINE HCL INJ 25 MG/1 ML VIAL IV PRN ×2 (13:29)
--- NOTE | 2018-06-13 13:46 | Operative Report ---
Operative Report DATE OF SURGERY: 06/13/18 PREOPERATIVE DIAGNOSIS: 1. Prolapsed uterine fibroid. 2. Fibroid uterus. 3. Anemia. 4. Dysfuntional Uterine Bleeding POSTOPERATIVE DIAGNOSIS: same OPERATION: Excision of Prolapsed Uterine Fibroid SURGEON: CHRIS ROWLAND ANESTHESIA: LMAC TISSUE REMOVED OR ALTERED: Prolapsed fibroid COMPLICATIONS: none ESTIMATED BLOOD LOSS: 2 ml INTRAOPERATIVE FINDINGS: prolasped, peduculated uterine fibroid, measuring approximately 4 x 5 cm, in vaginal vault PROCEDURE: The patient was taken to the operating room, where anesthesia was administered without difficulty. She was placed under conscious sedation. A bivalved speculum was placed in the vagina and the prolapsed fibroid was immediately seen. It measured approximatelt 4 x 5 cm. The stalk could be seen. A single toothed tenaculum was placed on the fibroid for traction. The bovie was used to excise the fibroid. No bleeding was noted. The fibroid was handed off to the OR tech to submit for pathological evaluation. The cervix was large and dilated. All areas were hemostatic. The patient tolerated the procedure well. Sponge and instrument counts were conrect x 2. The patient was taken to the recovery room in stable condition.
--- NOTE | 2018-06-13 13:49 | PDOC PROGRESS REPORT ---
Subjective Progress Note for:: 06/13/18 Subjective:: Pt stated that her bleeding was slowing down. She denied CP, SOB, F/C and N/V. She is ambulating and voiding without difficulty. Reason For Visit: SYMPTOMATIC ANEMIA,UTERINE FIBROID Physical Exam - Physical Exam Vital Signs: Temp Pulse Resp BP Pulse Ox 98.5 F 85 22 H 119/67 100 06/13/18 11:58 06/13/18 11:58 06/13/18 11:58 06/13/18 11:58 06/13/18 11:58 Intake & Output 06/12/18 06/13/18 06/14/18 06:59 06:59 06:59 Intake Total 2150 2550 Output Total 20 Balance 2150 2550 -20 Weight 64.2 kg 64.2 kg General appearance: PRESENT: no acute distress Respiratory exam: PRESENT: clear to auscultation helena Cardiovascular exam: PRESENT: RRR, tachycardia GI/Abdominal exam: PRESENT: normal bowel sounds, soft Extremities exam: ABSENT: calf tenderness, clubbing, full ROM, joint swelling, pedal edema, tenderness, +1 edema, +2 edema, other - Gynecological Exam Labia: normal Urethra: normal Introitus: normal Perineum: normal Vagina: normal, other - light bleeding Cervix: masses - 5cm slightly irregular prolapsed fibroid Cervix: masses - 5cm irregular myoma, stalk palpated up in cervix to be about 1cm diameter stalk Uterus: masses Adhexa: normal - feels as if mass to the left of the uterine fundus Result Laboratory Results: 06/13/18 05:09 06/11/18 14:37 06/11/18 06/13/18 14:44 05:09 WBC 8.7 RBC 2.76 L Hgb 7.3 L Hct 21.6 L MCV 78 L MCH 26.2 L MCHC 33.5 RDW 18.1 H Plt Count 330 Seg Neutrophils % 59.5 Lymphocytes % 25.5 Monocytes % 10.3 Eosinophils % 4.5 Basophils % 0.2 Absolute Neutrophils 5.1 Absolute Lymphocytes 2.2 Absolute Monocytes 0.9 Absolute Eosinophils 0.4 Absolute Basophils 0.0 Blood Type O POSITIVE Antibody Screen NEGATIVE 06/11/18 14:37 Troponin I < 0.012 Impressions: Chest X-Ray 06/11/18 14:11 IMPRESSION: No acute abnormality of the lungs. Transvaginal US 06/11/18 17:44 IMPRESSION: No acute sonographic abnormality. Fibroid uterus. copyright 2011 [employer]- All Rights Reserved Assessment & Plan - Diagnosis (1) Pedunculated leiomyoma of uterus Is this a current diagnosis for this admission?: Yes (2) Symptomatic anemia Is this a current diagnosis for this admission?: Yes (3) Uterine fibroid Qualifiers: Uterine leiomyoma location: intramural and submucous Qualified Code(s): D25.1 - Intramural leiomyoma of uterus; D25.0 - Submucous leiomyoma of uterus Is this a current diagnosis for this admission?: Yes - Time Time Spent with patient: Less than 15 minutes - Plan Summary Plan Summary: 1. Pt boarded for surgery to remove the prolapsed fibroid. Consent form signed. 2. Anticipate discharge today
[2018-06-13] MEDS ORDERED: KETAMINE HCL INJ 500 MG/10 ML VIAL ONE (13:50)
--- NOTE | 2018-06-13 16:15 | PDOC DISCHARGE SUMMARY ---
General - Admit/Disc Date/PCP Admission Date/Primary Care Provider: 06/11/18 18:01 Discharge Date: 06/13/18 - Discharge Diagnosis (1) Pedunculated leiomyoma of uterus Is this a current diagnosis for this admission?: Yes (2) Symptomatic anemia Is this a current diagnosis for this admission?: Yes (3) Uterine fibroid Is this a current diagnosis for this admission?: Yes - Additional Information Resuscitation Status: Full Code - s/p excision of prolapse, pedunculated fibroid Discharge Diet: As Tolerated, Regular Home Medications: No Home Medications 06/12/18 History of Present Illness Patient complains of: Heavy, irregular vaginal bleeding with known fibroid uterus History of Present Illness: LUZ MARIA PARRISH is a 33 year old female presented to the emergency department secondary to heavy, irregular vaginal bleeding. Her admission hemoglobin was roughly 5. She received 2 units of packed red blood cells. Patient has a known fibroid uterus. Patient stated that her irregular bleeding started in January. Hospital Course Hospital Course: During her hospital course, she was transfused 2 units of packed red blood cells. On examination, it was noted that she had a prolapse, pedunculated fibroid in her vaginal vault. The patient was taken to the operating suite where the fibroid was excised without complications. Physical Exam - Physical Exam Vital Signs: Temp Pulse Resp BP Pulse Ox 98.2 F 92 14 110/82 100 06/13/18 13:35 06/13/18 14:20 06/13/18 14:20 06/13/18 14:20 06/13/18 14:20 Intake & Output 06/12/18 06/13/18 06/14/18 06:59 06:59 06:59 Intake Total 2150 2550 1000 Output Total 75 Balance 2150 2550 925 Weight 64.2 kg 64.2 kg General appearance: PRESENT: no acute distress Respiratory exam: PRESENT: clear to auscultation helena Cardiovascular exam: PRESENT: RRR GI/Abdominal exam: PRESENT: normal bowel sounds, soft Extremities exam: ABSENT: calf tenderness, clubbing, full ROM, joint swelling, pedal edema, tenderness, +1 edema, +2 edema, other Musculoskeletal exam: ABSENT: ambulatory, deformity, dislocation, full ROM, normal inspection, tenderness, other - Gynecological Exam Labia: normal Urethra: normal Introitus: normal Perineum: normal Vagina: normal - Minimal bleeding since excision of fibroid, other - light bleeding Cervix: masses - 5cm slightly irregular prolapsed fibroid Cervix: masses - 5cm irregular myoma, stalk palpated up in cervix to be about 1cm diameter stalk Uterus: masses Adhexa: normal - feels as if mass to the left of the uterine fundus Result Laboratory Results: 06/13/18 05:09 06/11/18 14:37 06/11/18 06/13/18 14:44 05:09 WBC 8.7 RBC 2.76 L Hgb 7.3 L Hct 21.6 L MCV 78 L MCH 26.2 L MCHC 33.5 RDW 18.1 H Plt Count 330 Seg Neutrophils % 59.5 Lymphocytes % 25.5 Monocytes % 10.3 Eosinophils % 4.5 Basophils % 0.2 Absolute Neutrophils 5.1 Absolute Lymphocytes 2.2 Absolute Monocytes 0.9 Absolute Eosinophils 0.4 Absolute Basophils 0.0 Blood Type O POSITIVE Antibody Screen NEGATIVE 06/11/18 14:37 Troponin I < 0.012 Impressions: Chest X-Ray 06/11/18 14:11 IMPRESSION: No acute abnormality of the lungs. Transvaginal US 06/11/18 17:44 IMPRESSION: No acute sonographic abnormality. Fibroid uterus. copyright 2010 [employer]- All Rights Reserved Plan Discharge Plan: 1. discharge home today 2. Follow-up in the office in 2 weeks for postoperative exam 3. Pelvic rest Time Spent: Greater than 30 Minutes
[2018-06-13 17:25] VITALS: BP 111/68
== END 2018-06-13 17:50 | disposition home or self-care (01) ==
LOC: ER 13:54 → EH 18:01 → 2N 06-12 00:30
PROVIDERS: ADMIT Obstetrics & Gynecology; ATTEND Obstetrics & Gynecology
PROC: 30233N1 Transfusion of Nonautologous Red Blood Cells into Peripheral Vein, Percutaneous Approach (ICD-10-PCS; 2018-06-11)
PROC: 0UB97ZZ Excision of Uterus, Via Natural or Artificial Opening (ICD-10-PCS; principal; 2018-06-13 12:00)
DX: D25.1 Intramural leiomyoma of uterus (principal); D25.0 Submucous leiomyoma of uterus; D64.9 Anemia, unspecified; N93.8 Other specified abnormal uterine and vaginal bleeding; N92.0 Excessive and frequent menstruation with regular cycle; R56.9 Unspecified convulsions; R55 Syncope and collapse; R07.9 Chest pain, unspecified; R00.2 Palpitations; F12.10 Cannabis abuse, uncomplicated; Z87.891 Personal history of nicotine dependence
CPT/HCPCS: 93005; 99291; 96361; 96374; 96375; 86900; 86901; 36415 ×3; 36430; 86850; 84703; 85025 ×3; 80053; 84484; 86920; 87491; 87591; 88305 ×2; 71046; 76830; 93010; 58145; G0378 ×3; P9016; J2250; J1100; J1885; J1410; J3010; J3490 ×5; J2001; J2765; J2405 ×3; J7030; J7120 ×2; J2704; 88307; 952

== ENCOUNTER → 2019-07-19 | Outpatient (CLI) | payer MEDICAID ==
--- NOTE | 2019-07-19 13:47 | RADIOLOGY REPORT (SQ) ---
EXAM DESCRIPTION: U/S [id number] TRNABD 1GES W/ODOP IMAGES COMPLETED DATE/TIME: 07/19/2019 1:29 pm REASON FOR STUDY: ENCOUNTER FOR SUPRVSN OF NORMAL , FIRST TRIMESTER Z34.81 ENCOUNTER FOR S UPRVSN OF NORMAL , FIRST TRIM COMPARISON: 12/21/2008, 06/11/2018 TECHNIQUE: Transabdominal static and realtime grayscale images acquired of the pelvis. Additional se lected spectral and color Doppler images recorded. All images stored on PACs. bHCG: Not available. CLINICAL DATES: Not provided LIMITATIONS: None. FINDINGS: FETUS: Single Living intrauterine . ULTRASOUND EGA: 11 weeks 3 days ULTRASOUND RAGHAV: 02/04/2020 EFW: Not applicable less than 20 weeks. CRL: 4.7 cm FHR: 155 beats per minute. SURVEY: No visualized anomalies. AMNIOTIC FLUID: Adequate amount. PLACENTA: Not yet developed due to early gestation. SUBCHORIONIC BLEED: No. SIZE OF BLEED: Not applicable. UTERUS: The uterus measures 12.9 x 8.6 x 8.7 cm. Heterogeneous uterus with hypoechoic intramural fib roid along the fundus measuring 6.5 x 6.1 x 8.1 cm. CERVICAL LENGTH: 3.4 cm Closed. RIGHT ADNEXA: Normal ovary with normal vascular flow. Ovary measures 3.2 x 1.7 x 2.4 cm. No adnexal free fluid. No adnexal masses. LEFT ADNEXA: Normal ovary with normal vascular flow. Ovary measures 4.6 x 2.9 x 2.6 cm. No adnexal free fluid. No adnexal masses. 2.4 cm left ovarian cyst. FREE FLUID: None. OTHER: No other significant finding. IMPRESSION: Living intrauterine with estimated gestational age of 11 weeks and 3 days. Heterogeneous leiomyomatous uterus. Largest fibroid measures up to 8.1 cm. Trimester of : First trimester - 0 to 13 weeks. TECHNICAL DOCUMENTATION: JOB ID: [id number] 2010 [email or web address]- All Rights Reserved rev-07/02 Reading location - IP/workstation name: [email or web address]
== END ==
LOC: RAD 12:52
PROVIDERS: ATTEND Midwife
DX: O34.11 Maternal care for benign tumor of corpus uteri, first trimester (principal); D25.1 Intramural leiomyoma of uterus; O34.81 Maternal care for other abnormalities of pelvic organs, first trimester; N83.202 Unspecified ovarian cyst, left side; Z3A.11 11 weeks gestation of pregnancy
CPT/HCPCS: 76801

== ENCOUNTER 2020-01-21 08:36 | Outpatient (CLI) | payer MEDICAID ==
[2020-01-21 10:14] LABS: APPEARANCE,URINE SLIGHTLY-CLOUDY; BILIRUBIN,URINE NEGATIVE (NEGATIVE); COLOR,URINE YELLOW; GLUCOSE, URINE NEGATIVE (NEGATIVE); KETONES,URINE 80 mg/dL (NEGATIVE); LEUKOCYTE ESTERASE,URINE NEGATIVE (NEGATIVE); NITRITE,URINE NEGATIVE (NEGATIVE); PROTEIN,URINE NEGATIVE (NEGATIVE); URINE SPECIFIC GRAVITY 1.013; UROBILINOGEN,URINE NEGATIVE mg/dL (<2.0)
[2020-01-21] MEDS ORDERED: RINGERS SOLUTION,LACTATED 1,000 ML IV PRN (10:24)
[2020-01-21] MEDS ORDERED: FLUCONAZOLE 100 MG TABLET PO ONE (10:30)
[2020-01-21 10:35] LABS: BACTERIA (WET MOUNT) 4+ BACTERIA SEEN; EPITHELIALS (WET MOUNT) 4+ EPITHELIALS SEEN; T.VAGINALIS (WET MOUNT) NO TRICHOMONAS SEEN; WBCS (WET MOUNT) 2+ WBCS SEEN; YEAST (WET MOUNT) NO YEAST SEEN
[2020-01-21 10:43] LABS: URINE AMPHETAMINES SCREEN NEGATIVE; URINE BARBITURATES SCREEN NEGATIVE; URINE BENZODIAZEPINES SCREEN NEGATIVE; URINE COCAINE SCREEN NEGATIVE; URINE METHADONE SCREEN NEGATIVE; URINE PHENCYCLIDINE SCREEN NEGATIVE
[2020-01-21 10:47] LABS: URINE MARIJUANA (THC) SCREEN UNCONFIRMED POSITIVE
[2020-01-21] MEDS ORDERED: FLUCONAZOLE 100 MG TABLET ONE (11:57)
[2020-01-21 12:06] LABS: CHLAM PCR NOT DETECTED (NOT DETECT)
== END 2020-01-21 12:29 | disposition home or self-care (01) ==
LOC: LC 08:36
PROVIDERS: ATTEND Obstetrics & Gynecology
DX: O47.1 False labor at or after 37 completed weeks of gestation (principal); O99.283 Endocrine, nutritional and metabolic diseases complicating pregnancy, third trimester; E86.0 Dehydration; Z3A.38 38 weeks gestation of pregnancy
CPT/HCPCS: 59025; 94760; 87210; 81005; 80307; 87491; 87591; 80361; G0480 ×2; J3490; 80349

== ENCOUNTER 2020-01-28 19:47 | Inpatient (IN) | payer MEDICAID ==
[2020-01-28] MEDS ORDERED: ACETAMINOPHEN 325 MG TABLET PO PRN (20:08)
[2020-01-28] MEDS ORDERED: RINGERS SOLUTION,LACTATED 1,000 ML IV PRN (20:08)
[2020-01-28] MEDS ORDERED: MAG HYDROX/AL HYDROX/SIMETH SUSP 30 ML UDCUP PO PRN (20:08)
[2020-01-28] MEDS ORDERED: ZOLPIDEM TARTRATE 5 MG TABLET PO PRN (20:08)
[2020-01-28] MEDS ORDERED: RINGERS SOLUTION,LACTATED 300 ML IV ONE (20:30)
[2020-01-28] MEDS ORDERED: DINOPROSTONE 10 MG VAGINAL INSERT.SR PV ONE (20:30)
[2020-01-28] MEDS ORDERED: ZOLPIDEM TARTRATE 5 MG TABLET ONE (20:38)
[2020-01-28] MEDS ORDERED: DINOPROSTONE 10 MG VAGINAL INSERT.SR ONE (20:38)
[2020-01-28 20:42] LABS: HEMOGLOBIN 11.6 g/dL (12.0-15.5); MEAN CORPUSCULAR HEMOGLOBIN 29.6 pg (27.0-33.4); MEAN CORPUSCULAR HGB CONC 34.3 g/dL (32.0-36.0); MEAN CORPUSCULAR VOLUME 86 fl (80-97); PLATELET COUNT 231 10^3/uL (150-450); RED BLOOD COUNT 3.93 10^6/uL (3.72-5.28); RED CELL DISTRIBUTION WIDTH 14.8 % (11.5-14.0); WHITE BLOOD COUNT 11.6 10^3/uL (4.0-10.5)
[2020-01-28 20:47] LABS: APPEARANCE,URINE SLIGHTLY-CLOUDY; BILIRUBIN,URINE NEGATIVE (NEGATIVE); COLOR,URINE YELLOW; GLUCOSE, URINE NEGATIVE (NEGATIVE); KETONES,URINE NEGATIVE (NEGATIVE); LEUKOCYTE ESTERASE,URINE TRACE (NEGATIVE); NITRITE,URINE NEGATIVE (NEGATIVE); PROTEIN,URINE NEGATIVE (NEGATIVE); URINE SPECIFIC GRAVITY 1.004; UROBILINOGEN,URINE NEGATIVE mg/dL (<2.0)
[2020-01-28 21:09] LABS: URINE AMPHETAMINES SCREEN NEGATIVE; URINE BARBITURATES SCREEN NEGATIVE; URINE BENZODIAZEPINES SCREEN NEGATIVE; URINE COCAINE SCREEN NEGATIVE; URINE METHADONE SCREEN NEGATIVE; URINE PHENCYCLIDINE SCREEN NEGATIVE
[2020-01-28 21:13] LABS: URINE MARIJUANA (THC) SCREEN UNCONFIRMED POSITIVE
--- NOTE | 2020-01-29 02:02 | Admission Physical ---
Datetime Report Generated by CPN: 01/29/2020 02:01 CURRENT ADMISSION Hx Assessment: The History has been Reviewed and is Current Chief Complaint: Scheduled Induction of Labor Indication for Induction: Polyhydramnios Indication for Induction- Other: Enlarged uterine fibroid Admit Impression : Term, Intrauterine Admit Plan: Admit to Unit; Initiate Labor Induction Protocol ALLERGIES Medication Allergies: No Medication Allergies: No Known Allergies (06/11/2018) Latex: No Latex Allergies OBSTETRICAL HISTORY EDC: 02/04/2020 00:00 : 3 Para: 1 Term: 1 : 0 SAB: 0 IAB: 0 Ectopic: 0 Livin Cesareans: 0 VBACs: 0 Multiple Births: 0 Gestational Diabetes: No Rh Sensitization: No Incompetent Cervix: No RUSSEL: No Infertility: No ART Treatment: No Uterine Anomaly: No IUGR: No Hx Previous C/S: No Macrosomia: No Hx Loss/Stillborn: No PIH: No Hx : No Placenta Previa/Abruption: No Depression/PP Depression: No PTL/PROM: No Post Hemorrhage: No Current Procedures: Ultrasound Obstetrical History Comments: G1-IAB G2- 12/28/08 G3- Current SEE RECORDS Alcohol: No Marijuana : Yes Cocaine: No Other Illicit Drugs: No Cigarettes: Former Smoker. [id number] MEDICAL HISTORY Diabetes: No Blood Transfusion: No Pulmonary Disease (Asthma, TB): No Breast Disease: No Hypertension: No Therapeutic Specialist Surgery: No Heart Disease: No Hosp/Surgery: Yes Autoimmune Disorder: No Anesthetic Complications: No Kidney Disease: No Abnormal Pap Smear: No Neuro/Epilepsy: No Psychiatric Disorders: No Other Medical Diseases: No Hepatitis/Liver Disease: No Significant Family History: No Varicosities/Phlebitis: No Trauma/Violence : No Thyroid Dysfunction: No Medical History Comments: suction D_C 2004. Gonorrhea 2005. 2019 - excision of prolapsed uterine fibroid. 2008 child . INFECTIOUS HISTORY Gonorrhea: No Genital Herpes: No Chlamydia: No Tuberculosis: No Syphilis: No Hepatitis: No HIV/AIDS Exposure: No Rash or Viral Illness: No HPV: No PHYSICAL EXAM General: Normal HEENT: Normal Neurologic: Normal Thyroid: Normal Heart: Normal Lungs: Normal Breast: Normal Back: Normal Abdomen: Normal Genitourinary Exam: Normal Extremities: Normal DTRs: Normal Pelvic Type: Adequate Vital Signs: Reviewed; Within Normal Limits VAGINAL EXAM Dilatation: 2 Effacement: 0 Station: -2 MEMBRANES Membranes: Intact FETUS A EGA: 39.1 Monitoring: External US FHR- Baseline: 155 Variability: Moderate 6-25bpm Accelerations: 15X15 Decelerations: None FHR Category: Category I Presentation: Vertex Admit Comment: at 39.1 wks EGA for IOL d/t polyhydraminios and uterine fibroid -Admit to LDR -NPO and IVFs: LR at 125 cc/hr, after 1 liter -CEFM and toco -GBS negative -Cervidil for IOL -Hx of one prior . Anticipate PLANS FOR LABOR AND DELIVERY Labor and Delivery: None Pain Management: None Feeding Preference: Breast Benefit of Breast Feed Discussed: Yes Circumcision: N/A INFORMED CONSENT Informed Consent Obtained: Vaginal Delivery; Section Delivery; Vacuum/Forceps Assist; Risks, Benefits and Alternatives Discussed Signature: with User ID: [place] : with User ID: [place]
[2020-01-29] MEDS ORDERED: OXYTOCIN/0.9 % SODIUM CHLORIDE 30 UNIT/500 ML RTUINJ ONE (11:04)
[2020-01-29] MEDS ORDERED: MISOPROSTOL 0.2 MG TABLET ONE (11:04)
[2020-01-29] MEDS ORDERED: LIDOCAINE 1% INJ-PF (10 MG/ML) 30 ML SDV ONE (11:04)
[2020-01-29] MEDS ORDERED: OXYTOCIN 10 UNIT/ML VIAL ONE (11:04)
[2020-01-29] MEDS ORDERED: EPHEDRINE SULFATE INJ 50 MG/1 ML AMPULE ONE (15:55)
[2020-01-29] MEDS ORDERED: ROPIVACAINE HCL 0.2% INJ/PF (2 MG/ML) 20 ML SDV ONE (15:56)
[2020-01-29] MEDS ORDERED: FENTANYL/BUPIVACAINE/NS/PF 300 MCG/150 ML RTUINJ EPI ONE (15:56)
[2020-01-29] MEDS ORDERED: DIPH/PERTUSS(ACELL)/TETANUS VAC/PF 0.5 ML SYR (>=10YO) IM PRN (21:16)
[2020-01-29] MEDS ORDERED: GLYCERIN/WITCH HAZEL LEAF 1 EACH MED..WIPE TP PRN (21:16)
[2020-01-29] MEDS ORDERED: ACETAMINOPHEN 650 MG SUPP.RECT PR PRN (21:16)
[2020-01-29] MEDS ORDERED: ZOLPIDEM TARTRATE 5 MG TABLET PO PRN (21:16)
[2020-01-29] MEDS ORDERED: ACETAMINOPHEN WITH CODEINE #3 TABLET PO PRN (21:16)
[2020-01-29] MEDS ORDERED: MEASLES,MUMPS&RUBELLA VACC/PF 0.5 ML VIAL SUBCUT PRN (21:16)
[2020-01-29] MEDS ORDERED: OXYTOCIN/0.9 % SODIUM CHLORIDE 30 UNIT/500 ML RTUINJ IV PRN (21:16)
[2020-01-29] MEDS ORDERED: PROMETHAZINE HCL 25 MG TABLET PO PRN (21:16)
[2020-01-29] MEDS ORDERED: DIBUCAINE 1% OINTMENT 28 GM TP PRN (21:16)
[2020-01-29] MEDS ORDERED: MAGNESIUM HYDROXIDE SUSP 30 ML UDCUP PO PRN (21:16)
[2020-01-29] MEDS ORDERED: NA PHOS,M-B/NA PHOS,DI-BA (ADULT) 133 ML ENEMA PR PRN (21:16)
[2020-01-29] MEDS ORDERED: PROMETHAZINE HCL INJ 25 MG/1 ML VIAL IV PRN (21:16)
[2020-01-29] MEDS ORDERED: PSEUDOEPHEDRINE HCL 30 MG TABLET PO PRN (21:16)
[2020-01-29] MEDS ORDERED: BENZOCAINE/MENTHOL AEROSOL SPRAY 56 ML TOP PRN (21:16)
[2020-01-29] MEDS ORDERED: PROMETHAZINE HCL 25 MG SUPP.RECT PR PRN (21:16)
[2020-01-29] MEDS ORDERED: DIPHENHYDRAMINE HCL 25 MG CAPSULE PO PRN (21:16)
--- NOTE | 2020-01-29 22:21 | Delivery Summary ---
Del Sum A-C Datetime Report Generated by CPN: 01/29/2020 22:21 DELIVERY PERSONNEL DELIVERY PERSONNEL: [id number] Delivery Doctor:: Brad Earl, MD Labor and Delivery Nurse:: Iva Means RN Nursery Nurse:: Gwendolyn Cabrera RN MATERNAL INFORMATION Delivery Anesthesia: Epidural Medications After Delivery: Pitocin 30 Units in 500ml NS/D5W Maternal Complications: None LABOR SUMMARY EDC: 02/04/2020 00:00 No. Babies in Womb: 1 Attempted: No Labor Anesthesia: Epidural LABOR INFORMATION Reason for Induction: Polyhydramnios Onset of Labor: 01/29/2020 10:55 Complete Dilatation: 01/29/2020 20:20 Cervical Ripening Agents: Cervidil Oxytocin: Induction Group B Beta Strep: negative Steroids Given: None Reason Steroids Not Administered: Not Applicable MEMBRANES Membranes Rupture Method: Artificial Rupture of Membranes: 01/29/2020 10:55 Length of Rupture (hr): 10.18 Amniotic Fluid Color: Clear Amniotic Fluid Amount: Large Amniotic Fluid Odor: Normal STAGES OF LABOR Stage 1 hr: 9 Stage 1 min: 25 Stage 2 hr: 0 Stage 2 min: 46 Stage 3 hr: 0 Stage 3 min: 4 Total Time in Labor hr: 10 Total Time in Labor min: 15 VAGINAL DELIVERY Episiotomy: None Laceration #1: Perineal Laceration Extension #1: N/A Laceration Repair: Yes Sponge Count Correct: Yes Sharps Count Correct: Yes CSECTION DELIVERY Primary Indication: N/A Secondary Indication: N/A CSection Incidence: N/A Labor: N/A Elective: N/A BABY A INFORMATION Delivery Date/Time: 01/29/2020 21:06 Method of Delivery: Vaginal (Annotations: Data stored by CPN on behalf of user) Nurse Controlled Delivery: No Born in Route : No : N/A Forceps: N/A (Annotations: Data stored by CPN on behalf of user) Vacuum Extraction: N/A (Annotations: Data stored by CPN on behalf of user) Shoulder Dystocia : No PRESENTATION/POSITION BABY A Presentation: Cephalic Cephalic Presentation: Vertex Vertex Position: Left Occipital Anterior Breech Presentation: N/A PLACENTA INFORMATION BABY A Placenta Delivery Time : 01/29/2020 21:10 Placenta Method of Delivery: Spontaneous Placenta Status: Delivered SCORES BABY A Heart Rate 1 min: >100 bpm Resp Effort 1 min: Good Cry Reflex Irritability 1 min: Cough or Sneeze or Pulls Away Muscle Tone 1 min: Active Motion Color 1 min: Blue/Pale Resuscitation Effort 1 min: Tactile Stimulation SCORE 1 MIN: 8 Heart Rate 5 min: >100 bpm Resp Effort 5 min: Good Cry Reflex Irritability 5 min: Cough or Sneeze or Pulls Away Muscle Tone 5 min: Active Motion Color 5 min: Body [place], Extremities Blue Resuscitation Effort 5 min: Tactile Stimulation SCORE 5 MIN: 9 INFORMATION BABY A Gestational Age at Delivery: 39.1 Gestational Status: Full Term- 39- 40.6 Weeks Infant Outcome : Liveborn Condition : Stable Sex: Female IDENTIFICATION BABY A Verification Date/Time: 01/29/2020 22:10 ID Band Number: [id number] Mother's Name Verified: Yes Infant RN Verifying Infant: Teodoro Means RN/ S. Tal WEIGHT/LENGTH BABY A Birthweight (gm): 3570 Weight (lb): 7 Infant Weight (oz): 14 Length (in): 20.00 Infant Length (cm): 50.80 CORD INFORMATION BABY A No. Cord Vessels: 3 Nuchal Cord : N/A Cord Blood Taken: Yes-For Eval (Mom's Blood Type - or O+) Infant Suction: None ASSESSMENT BABY A Infant Complications: None Physical Findings at Delivery: Within Normal Limits Respirations: Appears Normal Skin to Skin: Yes Transferred To: Remains with Mother BABY B INFORMATION : N/A SIGNATURES Signature: with User ID: [email or web address]
--- NOTE | 2020-01-29 22:21 | Birth Certificate Data ---
Cert Data Datetime Report Generated by CPN: 01/29/2020 22:21 CERTIFICATE DATA Delivery Provider: Brad Earl MD (01/21/2020 08:42:Brad Earl MD (WEB)) 47a. Care: Yes (01/21/2020 08:42:Tawana Shin RN) 47b. Date of First Visit: 10/02/2019 00:00 (01/21/2020 08:42:Tawana Shin RN) 47c. Date of Last Visit: 01/15/2020 00:00 (01/21/2020 08:42:Tawana Shin RN) 47d. Number of Visits: 10 (01/21/2020 08:42:Tawana Shin RN) 48a. Number of Prev Live Births: 1 (01/21/2020 08:42:Bhavya Parada RN) 48b. Now Livin (01/21/2020 08:42:Bhavya Parada RN) 48c. Live Births Now : 0 (01/21/2020 08:42:QS system process) 48e. Losses: 1 (01/21/2020 08:42:Bhavya Parada RN) 48f. Date of Last Preg Loss: 09/25/2004 00:00 (01/21/2020 08:42:Nany Chávez RN) RISK FACTORS IN THIS 49a. Diabetes: No (01/21/2020 08:42:Nany Chávez RN) 49b. Hypertension: No (01/21/2020 08:42:Nany Chávez RN) 49c. Previous Births: 0 (01/21/2020 08:42:Tawana Shin RN) 49d. Stillborns: No (01/21/2020 08:42:Nany Chávez RN) 49d. IUGR: No (01/21/2020 08:42:Nany Chávez RN) 49e. Infertility Treatment: No (01/21/2020 08:42:Nany Chávez RN) 49f. Previous Cesareans: 0 (01/21/2020 08:42:Tawana Shin RN) Mother's Height 50b. Height Inches: 65 (01/21/2020 08:53:QS system process) Mother's Weight 51a. Pre- Weight (lbs): 176 (Annotations: Data stored by [facility] on behalf of user) (01/21/2020 08:42:Tawana Shin RN) 51b. Weight at Delivery (lbs): 191 (01/29/2020 14:27:QS system process) 52. Dt Last Normal Menses Began: 05/08/2019 00:00 (01/21/2020 08:42:Tawana Shin RN) Infections Present/Treated 53a. Gonorrhea: No (01/21/2020 08:42:Nany Chávez RN) Results this Hospital Visit : Negative (01/21/2020 08:42:Tawana Shin RN) 53b. Syphilis: No (01/21/2020 08:42:Nany Chávez RN) Results this Hospital Visit: NONREACTIVE (01/28/2020 20:12:QS system process) 53c. Chlamydia: No (01/21/2020 08:42:Nany Chávez RN) Results this Hospital Visit: Negative (01/21/2020 08:42:Tawana Shin RN) 53d. Hepatitis B: No (01/21/2020 08:42:Nany Chávez RN) Results this Hospital Visit: Negative (01/21/2020 08:42:Tawana Shin RN) 53e. Hepatitis C: Negative (01/21/2020 08:42:Tawana Shin RN) 53h. Mother Tested for HBsAG: Yes (01/21/2020 08:42:Tawana Shin RN) 53i. Date Tested: 07/26/2019 00:00 (01/21/2020 08:42:Tawana Shin RN) 53j. Test Result: Negative (01/21/2020 08:42:Tawana Shin RN) Obstetric Procedures 54a, b, c. Obstetric Procedures: Ultrasound (01/21/2020 08:42:Nany Chávez RN) Cigarette Smoking Cigarette Smoking: Former Smoker. [id number] (01/21/2020 08:42:Nany Chávez RN) Onset of Labor 56a. PROM >12 Hrs: 10.18 (01/21/2020 08:42:QS system process) 56b. Precipitous Labor <3 Hrs: 10 (01/21/2020 08:42:QS system process) 56c. Prolonged Labor > 20 Hrs: 10 (01/21/2020 08:42:QS system process) 57a. Induction of Labor: Induction (01/21/2020 08:42:Iva Means RN) 57a. Induction of Labor: Cervidil (01/28/2020 21:00:Nany Chávez RN) 57c. Non-Vertex Presentation A: Vertex (01/21/2020 08:42:Nany Chávez RN) 57d. Steroids - Lung Mat: None (01/21/2020 08:42:Sara Aj RN) 57d. Steroids - Lung Mat: Not Applicable (01/21/2020 08:42:Sara Aj RN) 57f. Mat [place] or Temp >100.4: 98.4 (01/21/2020 08:42:Nany Chávez RN) 57g. Moderate/Heavy Meconium: Clear (01/29/2020 10:55:Sara Aj RN) 57h. Intolerance of Labor: N/A (01/21/2020 08:42:Iva Means RN) : N/A (01/21/2020 08:42:Iva Means RN) 57i. Epidural/Spinal Anesthesia: Epidural (01/21/2020 08:42:Iva Means RN) Method of Delivery 58a. Forceps - Unsuccessful A: N/A (Annotations: Data stored by [facility] on behalf of user) (01/21/2020 08:42:Nany Chávez RN) 58b. Vacuum - Unsuccessful A: N/A (Annotations: Data stored by [facility] on behalf of user) (01/21/2020 08:42:Nany Chávez RN) 58c. Presentation at 58c. Presentation at - A : Vertex (01/21/2020 08:42:Nany Chávez RN) 58c. Presentation at - A : N/A (01/21/2020 08:42:Iva Means RN) 58c. Presentation at - A : Cephalic (01/29/2020 18:04:Nadine Allen RN) Final Route and Method of Del 58d. Baby A Route/Delivery: Vaginal (Annotations: Data stored by [facility] on behalf of user) (01/21/2020 08:42:Nany Chávez RN) 58e. Trial of Labor Attempted: No (01/21/2020 08:42:Sara Aj RN) 58e. Trial of Labor Attempted A: N/A (01/21/2020 08:42:Sara Aj RN) 58e. Trial of Labor Attempted B: N/A (01/21/2020 08:42:Sara Aj RN) Maternal Morbidity 59b. 3rd or 4th Degree Lacs: Perineal (01/21/2020 08:42:Brad Earl MD ([facility])) Birthweight Baby A: 3570 (01/21/2020 08:42:Iva Means RN) 60a. Pounds : 7 (01/21/2020 08:42:QS system process) 60b. Ounces: 14 (01/21/2020 08:42:QS system process) 61. GA at Delivery Baby A: 39.1 (01/21/2020 08:42:Iva Means RN) : Full Term- 39- 40.6 Weeks (01/21/2020 08:42:QS system process) 62a. 5 Minute Baby A: 9 (01/21/2020 08:42:QS system process)
[2020-01-29] MEDS ORDERED: IBUPROFEN 800 MG TABLET ONE (23:09)
[2020-01-29] MEDS: IBUPROFEN 800 MG TABLET PO SCH (23:11)
[2020-01-29] MEDS: FAMOTIDINE 20 MG TABLET PO SCH (23:37)
[2020-01-30] MEDS: IBUPROFEN 800 MG TABLET PO SCH ×3 (06:21→21:29)
[2020-01-30 06:37] LABS: HEMOGLOBIN 11.2 g/dL (12.0-15.5); MEAN CORPUSCULAR HEMOGLOBIN 29.1 pg (27.0-33.4); MEAN CORPUSCULAR VOLUME 86 fl (80-97); PLATELET COUNT 244 10^3/uL (150-450); RED BLOOD COUNT 3.85 10^6/uL (3.72-5.28); RED CELL DISTRIBUTION WIDTH 14.7 % (11.5-14.0); WHITE BLOOD COUNT 14.2 10^3/uL (4.0-10.5)
[2020-01-30] MEDS: DOCUSATE SODIUM 100 MG CAPSULE PO SCH ×2 (09:54→18:03)
[2020-01-30] MEDS: SENNOSIDES/DOCUSATE 8.6-50 MG 1 EACH TABLET PO SCH (09:56)
[2020-01-30] MEDS: FERROUS SULFATE 325 MG TABLET PO SCH ×2 (09:56→18:03)
[2020-01-30] MEDS: FAMOTIDINE 20 MG TABLET PO SCH ×2 (09:56→21:29)
[2020-01-30] MEDS: PRENATAL VITAMIN W DHA CAPSULE PO SCH (09:56)
--- NOTE | 2020-01-30 11:14 | PDOC PROGRESS REPORT ---
Subjective-OB Progress Note for:: 01/30/20 - PP day #1, doing well, no complaints, UOB, voiding O+, rubella immune, Physical Exam (OB) Vital Signs: Temp Pulse Resp BP Pulse Ox 97.5 F 67 16 108/72 98 01/30/20 09:08 01/30/20 08:00 01/30/20 08:00 01/30/20 08:00 01/30/20 08:00 Intake & Output 01/29/20 01/30/20 01/31/20 06:59 06:59 06:59 Intake Total 1000 Output Total 900 Balance 100 Weight 86.5 kg - General General Appearance: Appears well, Alert In distress: None - PIH/Pre-Eclampsia Clonus: Negative Headache: Absent Epigastric Pain: No Visual Changes: No - Maternal Morbidity 59. Maternal Morbidity (serious complications experinced by the mother associated with labor and delivery: None of the above - Lochia Lochia Amount: Scant < 10 ml Lochia Color: Rubra/Red - Abdomen Description: Soft Hernia Present: No Fundal Description: Firm, Midline Fundal Height: u/u - u/2 - Respiratory Respiratory Status: No respiratory distress - Abdominal Distension: No distension Tenderness: Nontender - Genitourinary Genitourinary Note: voiding - Extremities Upper extremity: Normal inspection Lower extremities: Normal inspection - Neurological Cognition: Normal Orientation: AAOx4 - Psychological Associated symptoms: Normal affect, Normal mood Objective-Diagnostic Laboratory: 01/30/20 06:11 01/30/20 06:11 WBC 14.2 H RBC 3.85 Hgb 11.2 L Hct 33.0 L MCV 86 MCH 29.1 MCHC 34.0 RDW 14.7 H Plt Count 244 Assessment and Plan(PN) - Assessment and Plan (1) (normal spontaneous vaginal delivery) Is this a current diagnosis for this admission?: Yes (2) Normal course Is this a current diagnosis for this admission?: Yes (3) Uterine fibroid Qualifiers: Uterine leiomyoma location: unspecified location Qualified Code(s): D25.9 - Leiomyoma of uterus, unspecified Is this a current diagnosis for this admission?: Yes Plan:: Routine PP orders, ambulation encouraged - Time Spent with Patient Time with patient: Less than 15 minutes Medications reviewed and adjusted accordingly: Yes - Disposition Anticipated Discharge Disposition: Home, Self Care Anticipated Discharge Timeframe: within 24 hours
[2020-01-31] MEDS: IBUPROFEN 800 MG TABLET PO SCH (05:52)
[2020-01-31 07:54] VITALS: BP 114/76
[2020-01-31] MEDS: SENNOSIDES/DOCUSATE 8.6-50 MG 1 EACH TABLET PO SCH (10:01)
[2020-01-31] MEDS: FERROUS SULFATE 325 MG TABLET PO SCH (10:01)
[2020-01-31] MEDS: PRENATAL VITAMIN W DHA CAPSULE PO SCH (10:01)
[2020-01-31] MEDS: DOCUSATE SODIUM 100 MG CAPSULE PO SCH (10:01)
[2020-01-31] MEDS: FAMOTIDINE 20 MG TABLET PO SCH (10:02)
--- NOTE | 2020-01-31 10:54 | PDOC PROGRESS REPORT ---
Subjective-OB Progress Note for:: 01/31/20 Subjective: sitting on side of bed, holding baby, ready to go home, , no c/o, desires BTL, already signed Title XX papers Physical Exam (OB) Vital Signs: Temp Pulse Resp BP Pulse Ox 97.8 F 72 16 114/76 99 01/31/20 10:11 01/31/20 07:53 01/31/20 07:53 01/31/20 07:53 01/31/20 07:53 Intake & Output 01/30/20 01/31/20 02/01/20 06:59 06:59 06:59 Intake Total 1000 400 Output Total 900 Balance 100 400 - PIH/Pre-Eclampsia Clonus: Negative Headache: Absent Epigastric Pain: No Visual Changes: No - Maternal Morbidity 59. Maternal Morbidity (serious complications experinced by the mother associated with labor and delivery: None of the above - Lochia Lochia Amount: Small 10-25 ml Lochia Color: Rubra/Red - Abdomen Description: Soft Hernia Present: No Fundal Description: Firm, Midline Fundal Height: u/u - u/2 Objective-Diagnostic Laboratory: 01/30/20 06:11 Assessment and Plan(PN) - Assessment and Plan (1) Uterine fibroid Qualifiers: Uterine leiomyoma location: unspecified location Qualified Code(s): D25.9 - Leiomyoma of uterus, unspecified Is this a current diagnosis for this admission?: Yes (2) (normal spontaneous vaginal delivery) Is this a current diagnosis for this admission?: Yes (3) Normal course Is this a current diagnosis for this admission?: Yes - Time Spent with Patient Time with patient: Less than 15 minutes Medications reviewed and adjusted accordingly: Yes - Disposition Anticipated Discharge Disposition: Home, Self Care Anticipated Discharge Timeframe: within 24 hours
--- NOTE | 2020-01-31 10:59 | PDOC DISCHARGE SUMMARY ---
Impression - Admit/DC Date/PCP Admission Date/Primary Care Provider: 01/28/20 19:47 YOGESH HINDS MD Discharge Date: 01/31/20 - Discharge Diagnosis (1) Uterine fibroid Is this a current diagnosis for this admission?: Yes (2) (normal spontaneous vaginal delivery) Is this a current diagnosis for this admission?: Yes (3) Normal course Is this a current diagnosis for this admission?: Yes - Additional Information Resuscitation Status: Full Code Discharge Diet: As Tolerated, Regular Discharge Activity: Activity As Tolerated, Pelvic Rest Referrals: YOGESH HINDS MD [Primary Care Provider] - (rtc 4 weeks) Home Medications: No122/Iron/Folic Acid [ Multi Tablet] 1 tab PO DAILY 01/21/20 HPI Gestational Age: 39.1 Reason(s) for Admission: Induction of Labor Admission Note: polyhydramnios Procedures: NST, Ultrasound Intrapartum Procedure(s): Spontaneous Vaginal Delivery Hospital Course Hospital Course: routine 59. Maternal Morbidity (serious complications experinced by the mother associated with labor and delivery: None of the above Results Laboratory Results: WBC 14.2 10^3/uL (4.0-10.5) H 01/30/20 06:11 RBC 3.85 10^6/uL (3.72-5.28) 01/30/20 06:11 Hgb 11.2 g/dL (12.0-15.5) L 01/30/20 06:11 Hct 33.0 % (36.0-47.0) L 01/30/20 06:11 MCV 86 fl (80-97) 01/30/20 06:11 MCH 29.1 pg (27.0-33.4) 01/30/20 06:11 MCHC 34.0 g/dL (32.0-36.0) 01/30/20 06:11 RDW 14.7 % (11.5-14.0) H 01/30/20 06:11 Plt Count 244 10^3/uL (150-450) 01/30/20 06:11 Urine Color YELLOW 01/28/20 19:59 Urine Appearance SLIGHTLY-CLOUDY 01/28/20 19:59 Urine pH 8.0 (5.0-9.0) 01/28/20 19:59 Ur Specific Leonard 1.004 01/28/20 19:59 Urine Protein NEGATIVE mg/dL (NEGATIVE) 01/28/20 19:59 Urine Glucose (UA) NEGATIVE mg/dL (NEGATIVE) 01/28/20 19:59 Urine Ketones NEGATIVE mg/dL (NEGATIVE) 01/28/20 19:59 Urine Blood NEGATIVE (NEGATIVE) 01/28/20 19:59 Urine Nitrite NEGATIVE (NEGATIVE) 01/28/20 19:59 Urine Bilirubin NEGATIVE (NEGATIVE) 01/28/20 19:59 Urine Urobilinogen NEGATIVE mg/dL (<2.0) 01/28/20 19:59 Ur Leukocyte Esterase TRACE (NEGATIVE) H 01/28/20 19:59 Urine Ascorbic Acid NEGATIVE (NEGATIVE) 01/28/20 19:59 Urine Opiates Screen NEGATIVE 01/28/20 19:59 Urine Methadone Screen NEGATIVE 01/28/20 19:59 Ur Barbiturates Screen NEGATIVE 01/28/20 19:59 Ur Phencyclidine Scrn NEGATIVE 01/28/20 19:59 Ur Amphetamines Screen NEGATIVE 01/28/20 19:59 U Benzodiazepines Scrn NEGATIVE 01/28/20 19:59 Urine Cocaine Screen NEGATIVE 01/28/20 19:59 U Marijuana (THC) Screen UNCONFIRMED POSITIVE 01/28/20 19:59 RPR NONREACTIVE (NONREACTIVE) 01/28/20 20:12 Blood Type O POSITIVE 01/28/20 20:12 Antibody Screen NEGATIVE 01/28/20 20:12 Plan Health Concerns: routine Plan of Treatment: rev S&S to report, take PNV's, pelvic rest Goals: no complications Time Spent: Less than 30 Minutes
== END 2020-01-31 13:30 | disposition home or self-care (01) | DRG 807 ==
LOC: LR 19:47 → 2S 01-29 23:35
PROVIDERS: ADMIT Obstetrics & Gynecology; ATTEND Obstetrics & Gynecology Gynecology
PROC: 10E0XZZ Delivery of Products of Conception, External Approach (ICD-10-PCS; principal; 2020-01-29)
DX: O40.3XX0 Polyhydramnios, third trimester, not applicable or unspecified (principal); Z37.0 Single live birth; O34.13 Maternal care for benign tumor of corpus uteri, third trimester; D25.9 Leiomyoma of uterus, unspecified; Z87.891 Personal history of nicotine dependence; Z86.19 Personal history of other infectious and parasitic diseases; Z3A.39 39 weeks gestation of pregnancy
CPT/HCPCS: 1967; 36415; 80307; 80349; 81005; 85027; 86592; 86850; 86900; 86901; 94760; G0480; J2590; J2795; J3010; J3490